=== PATIENT | female | born 2005 | race Caucasian/White ===

== ENCOUNTER 2023-07-29 15:08 | Inpatient (IN) ==
[2023-07-29] MEDS ORDERED: Lactated Ringers 1000 ml BAG 1,000 ML IV ONE (16:34)
[2023-07-29] MEDS ORDERED: Buffered Lidocaine 1% SYRIN 1 ml INTRADERM ONE (16:34)
[2023-07-29] MEDS ORDERED: Lidocaine 1% VIAL 10 MG/ML 30 ML VIAL INJ PRN (16:34)
[2023-07-29] MEDS ORDERED: Lactated Ringers 1000 ml BAG 1,000 ML IV SCH (17:00)
[2023-07-30] MEDS ORDERED: Lidocaine 2% JELLY 6 ML Topical TOPICAL ONE ×2 (02:14→04:06)
[2023-07-30] MEDS ORDERED: Glycerin ADULT 2.4 gm SUPP PR PRN (02:50)
[2023-07-30] MEDS ORDERED: Witch Hazel PAD JAR TOPICAL PRN (02:50)
[2023-07-30] MEDS ORDERED: Lactated Ringers 1000 ml BAG 1,000 ML IV SCH (03:00)
[2023-07-30] MEDS: Dibucaine 1% OINT 28.35 GM TUBE PR PRN (06:48)
[2023-07-30 08:08] LABS: Urine Benzodiazepine Screen None Detected (None Detect); Urine Opiates Screen None Detected (None Detect)
[2023-07-31 08:42] LABS: ABS Monocytes 0.5 10^3/uL (0.0-0.9); ABS Neutrophils 9.2 10^3/uL (1.5-7.6); ABS Nucleated RBC 0.01 10^3/ul; Eosinophil % 0.3 %; Hematocrit 28.5 % (35-45); Hemoglobin 9.8 g/dL (11.5-14.3); Lymphocyte % 23.8 %; Mean Corpuscular Hemoglobin 27.5 pg (27-33); Mean Corpuscular Hgb Conc 34.5 g/dL (31-36); Mean Corpuscular Volume 79.8 fL (80-97); Mean Platelet Volume 10.1 fL (7.5-11.2); Nucleated Red Blood Cells % 0.1 /100 WBC (0.0-0.4); Platelet Count 187 10^3/uL (150-450); Red Blood Count 3.58 10^6/uL (3.63-4.92); Red Cell Distribution Width 16.1 % (12-17); White Blood Count 12.8 10^3/uL (3.8-11.8)
[2023-07-31] MEDS: Dibucaine 1% OINT 28.35 GM TUBE PR PRN (15:01)
[2023-08-01 10:43] VITALS: BP 107/51
== END 2023-08-01 12:39 | disposition home or self-care (01) | DRG 560 ==
LOC: MCHOBOUT 15:08 → MCHOB 16:32
PROVIDERS: ADMIT Advanced Practice Midwife; ATTEND Advanced Practice Midwife